=== PATIENT | male | born 1995 | race Caucasian/White ===

== ENCOUNTER 2023-06-10 05:41 | Emergency (ER) | payer SELFPAY ==
[~2023-06-10] VITALS: Ht 180.3 cm; Wt 79.4 kg
[2023-06-10] MEDS ORDERED: ASPIRIN 81 MG TAB.CHEW ONE (06:09)
[2023-06-10] MEDS ORDERED: ASPIRIN 81 MG TAB.CHEW PO ONE (06:15)
[2023-06-10 06:22] LABS: BASOPHILS # (AUTO) 0.2 K/UL (0.0-0.2); BASOPHILS % (AUTO) 2.2 % (0.0-2.0); EOSINOPHILS # (AUTO) 0.2 K/uL (0.0-0.7); HEMATOCRIT 41.4 % (36.7-47.1); HEMOGLOBIN 14.1 g/dL (12.5-16.3); LYMPHOCYTES # (AUTO) 1.1 K/uL (0.8-4.8); LYMPHOCYTES % (AUTO) 15.9 % (20.5-51.5); MEAN CORPUSCULAR HEMOGLOBIN 30.9 uug (23.8-33.4); MEAN CORPUSCULAR HGB CONC 34 g/dL (32.5-36.3); MEAN CORPUSCULAR VOLUME 90.5 fL (73.0-96.2); MONOCYTES # (AUTO) 0.3 K/uL (0.1-1.30); MONOCYTES % (AUTO) 4.3 % (0.0-11.0); NEUTROPHILS # (AUTO) 5.2 K/uL (1.8-8.9); NEUTROPHILS % (AUTO) 74.6 % (38.5-71.5); PLATELET COUNT (AUTO) 227 K/uL (152-348); RED BLOOD CELL COUNT(AUTO) 4.58 MIL/uL (4.06-5.63); RED CELL DISTRIBUTION WIDTH 13.4 % (12.1-16.2)
[2023-06-10 06:23] LABS: DIFFERENTIAL COMMENT 1
[2023-06-10 06:48] LABS: ALANINE AMINOTRANSFERASE 16 U/L (16-63); ALBUMIN 4.2 g/dL (3.4-5.0); ALKALINE PHOSPHATASE 57 U/L (50-136); ASPARTATE AMINOTRANSFERASE 8 U/L (15-37); BILIRUBIN,DIRECT 0.1 mg/dL (0.0-0.2); BILIRUBIN,TOTAL 0.4 mg/dL (0.2-1.0); CALCIUM 8.5 mg/dL (8.5-10.1); CARBON DIOXIDE 29 mmol/L (21-32); CHLORIDE 105 mmol/L (98-107); GLUCOSE 125 mg/dL (74-106); NT-PRO BNP 26 pg/mL (0-125); POTASSIUM 3.6 mmol/L (3.5-5.1); SODIUM SERUM 142 mmol/L (136-145); TOTAL PROTEIN, SERUM 7.5 g/dL (6.4-8.2); UREA NITROGEN, BLOOD 7 mg/dL (7-18)
[2023-06-10 10:38] VITALS: O2SAT 96
== END 2023-06-10 10:39 | disposition home or self-care (01) ==
LOC: ER 05:41
DX: R07.89 Other chest pain (principal)
CPT/HCPCS: 36415; 71045; 84484; 85025; 93005; A4663